=== PATIENT | male | born 1970 | race African-American/Black ===

== ENCOUNTER 2016-06-28 22:11 | Inpatient (IN) | payer OTHER ==
[~2016-06-28] VITALS: Ht 177.8 cm; Wt 68.0 kg
[2016-06-28 23:19] LABS: BASOPHILS 0.2 % (0.0-2.0); EOSINOPHILS 0.6 % (0-7); HEMATOCRIT 40.5 % (42.0-54.0); HEMOGLOBIN 13.2 g/dL (13.5-17.5); IMMATURE GRANULOCYTES 0.2 % (0-5); LYMPHOCYTES 27.8 % (15-50); MCH 31.6 pg (26.0-34.0); MCHC 32.6 g/dL (31.0-37.0); MCV 96.9 fL (80.0-100.0); MEAN PLATELET VOLUME 9.3 fL (7.4-10.4); MONOCYTES 7.4 % (2-11); NEUTROPHILS 63.8 % (40-80); PLATELET COUNT 198 10x3/uL (130-400); RBC 4.18 10x6/uL (4.20-6.10); RDW 13.1 % (11.5-14.5); WBC 5.2 10x3/uL (4.8-10.8)
[2016-06-28 23:21] LABS: APPEARANCE HAZY (CLEAR); BACTERIA NONE SEEN /hpf (NONE SEEN); BILIRUBIN NEGATIVE (NEGATIVE); COLOR YELLOW (YELLOW); EPITHELIAL CELLS NSEEN /hpf (0-5); GLUCOSE 50 mg/dL (NEGATIVE); KETONE SMALL mg/dL (NEGATIVE); LEUKOCYTE ESTERASE NEGATIVE (NEGATIVE); NITRITE NEGATIVE (NEGATIVE); PROTEIN TRACE mg/dL (NEGATIVE); RED CELLS - URINE 0-5 /hpf (0-5); SPECIFIC GRAVITY 1.025 (1.005-1.020); UROBILINOGEN NORMAL (NORMAL); WHITE CELLS - URINE NSEEN /hpf (0-5)
[2016-06-28 23:28] LABS: UDS - AMPHET POSITIVE QUAL (NEGATIVE); UDS - BARB NEGATIVE QUAL (NEGATIVE); UDS - BENZO POSITIVE QUAL (NEGATIVE); UDS - COCAINE POSITIVE QUAL (NEGATIVE); UDS - METH NEGATIVE QUAL (NEGATIVE); UDS - OPIATE NEGATIVE QUAL (NEGATIVE); UDS - PCP NEGATIVE QUAL (NEGATIVE); UDS - THC POSITIVE QUAL (NEGATIVE)
[2016-06-28 23:28] LABS: ALBUMIN 2.8 g/dL (3.4-5.0); ANION GAP 13.7 mmol/L (8-16); BILIRUBIN - TOTAL 0.2 mg/dL (0.2-1.3); CALCIUM 7.5 mg/dL (8.5-10.1); CREATININE - SERUM 1.2 mg/dL (0.6-1.3); POTASSIUM - SERUM 3.7 mmol/L (3.5-5.1); PROTEIN - SERUM 5.8 g/dL (6.4-8.2)
[2016-06-29] VITALS (24 sets, daily range): BP systolic 102–156; BP diastolic 85–117; Ht 177.8 cm; Wt 68.0 kg
--- NOTE | 2016-06-29 01:00 | NUR ---
PATIENT BROUGHT FROM ER VIA BED. PATIENT IS INTUBATED AND ON THE VENT. ETT 25CM AT THE LIP. OGT PLACED AT THIS TIME AND HOOKED TO LIS AFTER CONFIRMING LOCATION WITH AIR BOLUS. 100CC OF BILE COLORED FLUID SUCTIONED INTO CANISTER. S1S2 NOTED WITH NORMAL SINUS ON MONITOR WITH A RATE OF 93. LUNG SOUNDS CLEAR, EVEN BILATERAL. BOWEL SOUNDS ACTIVE X4. MENESES CATHETER PLACED BEFORE TRANSFER AND HAS 300CC OF CLEAR YELLOW URINE. SCD'S PLACED ON PATIENT AT THIS TIME. PIV IN RIGHT AC INFUSING PROPOFOL @ 50MCG/KG/MIN AND NS @ 100MLS/HR. PERIPHERAL PULSES +2. PATIENT HAS BAG WITH CLOTHES IN IT THAT WILL BE KEPT IN THE UNIT DISCHARGE. PATIENT IS VERY AWAKE AND THRASHING IN BED AT THIS TIME, PROPOFOL INCREASED FOR SEDATION. VSS, SEE ADMISSION ASSESSMENT FOR MORE DETAILS.
--- NOTE | 2016-06-29 02:30 | NUR ---
PATIENT CONTINUES TO THRASH AROUND IN BED AND FIGHT THE VENT, SEDATION TITRATED UP FOR SEDATION. VSS.
--- NOTE | 2016-06-29 03:30 | NUR ---
PRN ATIVAN GIVEN FOR AGITATION. REASSESSMENT COMPLETE AT THIS TIME. NO CHAGES FROM INITIAL ASSESSMENT.
--- NOTE | 2016-06-29 05:00 | NUR ---
PATIENT CALM AND COOPERATIVE. VSS, WILL CONTINUE TO MONITOR.
[2016-06-29 05:05] LABS: BASOPHILS 0.2 % (0.0-2.0); EOSINOPHILS 0.5 % (0-7); HEMATOCRIT 41.4 % (42.0-54.0); HEMOGLOBIN 13.8 g/dL (13.5-17.5); LYMPHOCYTES 37.8 % (15-50); MCH 31.6 pg (26.0-34.0); MCHC 33.3 g/dL (31.0-37.0); MCV 94.7 fL (80.0-100.0); MEAN PLATELET VOLUME 9.3 fL (7.4-10.4); MONOCYTES 9.7 % (2-11); NEUTROPHILS 51.8 % (40-80); PLATELET COUNT 214 10x3/uL (130-400); RBC 4.37 10x6/uL (4.20-6.10); RDW 13.1 % (11.5-14.5); WBC 6.3 10x3/uL (4.8-10.8)
[2016-06-29 05:22] LABS: ALBUMIN 2.9 g/dL (3.4-5.0); ALKALINE PHOSPHATASE 64 U/L (46-116); ALT (SGPT) 24 U/L (10-68); BILIRUBIN - TOTAL 0.32 mg/dL (0.2-1.3); CALC OSMOLALITY 279 mosm/kg (275-300); CALCIUM 7.7 mg/dL (8.5-10.1); CARBON DIOXIDE 28.4 mmol/L (21.0-32.0); CHLORIDE - SERUM 105 mmol/L (98-107); GLUCOSE 106 mg/dL (74-106); POTASSIUM - SERUM 3.8 mmol/L (3.5-5.1); SODIUM 141 mmol/L (136-145); UREA NITROGEN 10 mg/dL (7-18); eGFR NON AFRICAN AMERICAN 87 mL/min (90-120)
--- NOTE | 2016-06-29 08:07 | NUR ---
LYING IN BED AT THIS TIME ON VENT AND SEDATED. NO ACUTE DISTRESS NOTED. PT TURNED Q2H. WILL CONTINUE PLAN FO CARE.
--- NOTE | 2016-06-29 10:33 | NUR ---
NOTED PT HAS HIGH BLOOD PRESSURE AT 149/106. DR CHANG ROUNDING AT THIS TIME, NOTIFIED. NOTED NEW ORDER FOR CLONIDINE PATCH 0.1MG. ORDER PLACED.
--- NOTE | 2016-06-29 12:13 | NUR ---
Nutrition Note: Chart reviewed and spoke with nursing. If pt is unable to wean from vent within the next 24-48 hours rec begin TF of Pulmocare @ 10 ml/hr. Advance 10 ml every 8-10 hours as tolerated to goal rate of 40 ml/hr (depending on Diprivan rate at that time). Water flushes 25 ml/hr. RD will continue to monitor pt progress.
--- NOTE | 2016-06-29 14:46 | NUR ---
NO ACUTE DISTRESS NOTED. PT TURNED, ORAL CARE PROVIDED. NO ACUTE DISTRESS NOTED. WILL CONTINUE PLAN OF CARE.
--- NOTE | 2016-06-29 15:59 | NUR ---
POISON CONTROL CALLED.
--- NOTE | 2016-06-29 16:16 | NUR ---
WHILE TURNING PT NOTED PT TO SLIGHTLY MOVE ARMS. PT ABLE TO SLIGHTLY SQUEEZE HAND WHEN ASKED BY STAFF. NO ACUATE DISTRESS NOTED. WILL CONTINUE PLAN FO CARE.
--- NOTE | 2016-06-29 19:15 | NUR ---
ASSESSMENT COMPLETE. PATIENT ON VENT AND SEDATED WITH PROPOFOL AT 50MCG/KG/MIN. OPENS EYES TO PAIN. OGT TO LIS. S1S2 NOTED WITH NORMAL SINUS ON MONITOR. BREATH SOUNDS EVEN, LUNG SOUNDS CLEAR. BOWEL SOUNDS ACTIVE, BELLY NON-DISTENDED. PERIPHERAL PULSES +2. VSS, WILL CONTINUE TO MONITOR.
--- NOTE | 2016-06-29 21:00 | NUR ---
PATIENT THRASHING AROUND IN BED AND FIGHTING/BITING DOWN ON TUBE. TITRATING UP ON PROPOFOL FAILED TO CALM PATIENT. PRN ATIVAN GIVEN FOR AGITATION. WILL CONTINUE TO MONITOR.
--- NOTE | 2016-06-29 23:15 | NUR ---
REASSESSMENT COMPLETE. NO ACUTE CHANGES AT THIS TIME.
[2016-06-30] VITALS (24 sets, daily range): BP systolic 97–163; BP diastolic 39–108
--- NOTE | 2016-06-30 01:00 | NUR ---
PATIENT CALM AND COOPERATIVE, VSS, ORAL CARE GIVEN.
--- NOTE | 2016-06-30 03:05 | NUR ---
REASSESSMENT COMPLETE. NO CHANGES AT THIS TIME.
--- NOTE | 2016-06-30 05:00 | NUR ---
ORAL CARE GIVEN, PATIENT HAS SOME BLOOD FROM BITING TONGUE. CLEANED UP AND REPOSITIONED FOR COMFORT.
[2016-06-30 05:29] LABS: BASOPHILS 0 % (0.0-2.0); EOSINOPHILS 0.2 % (0-7); HEMATOCRIT 45.6 % (42.0-54.0); IMMATURE GRANULOCYTES 0.1 % (0-5); LYMPHOCYTES 29.1 % (15-50); MCH 31.6 pg (26.0-34.0); MCHC 32.9 g/dL (31.0-37.0); MCV 96.2 fL (80.0-100.0); MONOCYTES 9.2 % (2-11); NEUTROPHILS 61.4 % (40-80); PLATELET COUNT 209 10x3/uL (130-400); RBC 4.74 10x6/uL (4.20-6.10); RDW 13.4 % (11.5-14.5)
[2016-06-30 05:30] LABS: WBC 8.3 10x3/uL (4.8-10.8)
[2016-06-30 06:00] LABS: ALBUMIN 3.2 g/dL (3.4-5.0); BILIRUBIN - TOTAL 0.3 mg/dL (0.2-1.3); CALCIUM 8.2 mg/dL (8.5-10.1); CARBON DIOXIDE 27.9 mmol/L (21.0-32.0); CREATININE - SERUM 1.2 mg/dL (0.6-1.3); MAGNESIUM - SERUM 2.1 mg/dL (1.8-2.4); POTASSIUM - SERUM 3.9 mmol/L (3.5-5.1); PROTEIN - SERUM 6.5 g/dL (6.4-8.2)
--- NOTE | 2016-06-30 07:31 | NUR ---
SUCTIONING PROVIDED TO PT, NOTED SMALL AMOUNT OF THICK SECRETIONS. NEURO CHECKS PROVIDED. PT NOTED TO FOLLOW SIMPLE COMMANDS SUCH SQUEEZING STAFF HAND UPON REQUEST. PT ALSO TURNING HEAD IN THE DIRECTION OF PERSON SPEAKING TO HIM. NO ACUTE DISTRESS NOTED. WILL CONTINUE PLAN OF CARE.
--- NOTE | 2016-06-30 10:51 | NUR ---
SEDATION IS OFF AT THIS TIME. PT IS FOLLOWING COMMANDS. RESPIRATORY HAS CHANGED SETTINGS TO SEE IF PT CAN BE WEANED. NO DISTRESS NOTED. WILL CONTINUE PLAN OF CARE.
--- NOTE | 2016-06-30 11:40 | NUR ---
BILATERAL SOFT WRIST RESTRAINTS ALSO DC AT THIS TIME.
--- NOTE | 2016-06-30 11:40 | NUR ---
PT EXTUBATED SELF AT THIS TIME. SOFT WRIST RESTRAINTS WERE IN PLACE AND HAD BEEN CHECKED FREQUENTLY TO SEE IF NEEDING ADJUSTMENT. PT HAD EXTUBATED SELF WHILE STILL ON SOFT WRIST RESTRAINTS. DR LEONARD IMMEDIATLY NOTIFIED. RESPRITORY CALLED TO ROOM. PT IMMEDIATLY BAGGED UNTIL OXYGEN SATURATION WAS ABOVE 90% MORA LEONARD IN ROOM, PT BEGAN BREATHING ON OWN AND OXYGEN SATURATION REMAINED OVER 90%. NC PLACED AT 2L OXYGEN. OXYGEN SATURATION NOTED AT 94%. SUCTIONING AND ORAL CARE PROVIDED. WILL CONTINUE PLAN OF CARE.
--- NOTE | 2016-06-30 12:30 | NUR ---
RESTING AT THIS TIME, RESPIRATIONS AT STEADY AND UNLABORED RATE. OXYGEN SATURATION AT 94% AT 2L VIA NC. WILL CONTINUE PLAN FO CARE.
--- NOTE | 2016-06-30 13:23 | NUR ---
SITTING UP IN BED AWAKE AT THIS TIME. NO ACUTE DISTRESS. SOME CONFUSION TO LOCATION AND SITUATION. REORIENTATION PROVIDED. PT DENIES ANY NEEDS. WILL CONTINUE PLAN OF CARE.
--- NOTE | 2016-06-30 13:30 | NUR ---
NOTED PT TOLERATING ICE CHIPS VERY WELL. NO COUGHING.WILL CONTINUE PLAN FO CARE.
--- NOTE | 2016-06-30 14:08 | NUR ---
NOTED PT TOELRATES SIPS OF WATER VERY WELL. NO COUGHING OR SYMPTOMS OF ASPIRATION NOTED. WILL CONTINUE PLAN OF CARE.
--- NOTE | 2016-06-30 16:48 | NUR ---
LYING IN BED RESTING AT THIS TIME. AWAKENS EASILY WHEN STAFF STATES PT NAME. NO ACUTE DISTRESS NOTED. WILL CONTINUE PLAN OF CARE.
--- NOTE | 2016-06-30 18:22 | NUR ---
SITTING UP IN BED RESTING AT THIS TIME. AWAKENS EASILY WHEN STAFF STATES PT NAME. NO ACUTE DISTRESS NOTED. PT TOLERATING CLEAR LIQUID DIET VERY WELL. NO COUGHING OR SIGNS OF ASPIRATION NOTED. WILL CONTINUE PLAN OF CARE.
--- NOTE | 2016-06-30 19:00 | NUR ---
REPORT RECIEVED, INITIAL ASSESSMENT COMPLETE, PLEASE SEE FLOW SHEETS FOR DETAILS. BED LOW AND LOCKED, CALL LIGHT IN REACH. FEBRILE AT THIS TIME. CALLED DR JOHNSON FOR TYLENOL ORDERS, WILL GIVE ORDERED. ALL OTHER VSS, WILL CONTINUE TO MONITOR.
--- NOTE | 2016-06-30 23:00 | NUR ---
REASSESSMENT COMPLETE, PLEASE SEE FLOW SHEETS FOR DETAILS. PT DENIES PAIN/NEEDS AT THIS TIME. BED LOW AND LOCKED, CALL LIGHT IN REACH. WILL CONTINUE TO MONITOR.
[2016-07-01] VITALS (12 sets, daily range): BP systolic 98–126; BP diastolic 49–89
--- NOTE | 2016-07-01 01:00 | NUR ---
PT RESTING. DENIES PAIN/NEEDS AT THIS TIME. BED LOW AND LOCKED, CALL LIGHT IN REACH. VSS, WILL CONTINUE TO MONITOR.
--- NOTE | 2016-07-01 03:00 | NUR ---
REASSESSMENT COMPLETE, PLEASE SEE FLOW SHEETS FOR DETAILS. BED LOW AND LOCKED, CALL LIGHT IN REACH. DENIES PAIN/NEEDS AT THIS TIME. VSS, WILL CONTINUE TO MONITOR.
[2016-07-01 04:48] LABS: BASOPHILS 0.1 % (0.0-2.0); EOSINOPHILS 0.9 % (0-7); HEMATOCRIT 37.8 % (42.0-54.0); HEMOGLOBIN 12.1 g/dL (13.5-17.5); IMMATURE GRANULOCYTES 0.1 % (0-5); LYMPHOCYTES 19.8 % (15-50); MCH 31.3 pg (26.0-34.0); MCV 97.7 fL (80.0-100.0); MEAN PLATELET VOLUME 9.5 fL (7.4-10.4); MONOCYTES 10.3 % (2-11); NEUTROPHILS 68.8 % (40-80); PLATELET COUNT 179 10x3/uL (130-400); RBC 3.87 10x6/uL (4.20-6.10); RDW 13.3 % (11.5-14.5); WBC 7.8 10x3/uL (4.8-10.8)
--- NOTE | 2016-07-01 05:00 | NUR ---
PT RESTING. DENIES PAIN/NEEDS AT THIS TIME. VSS, WILL CONTINUE TO MONITOR.
[2016-07-01 05:06] LABS: ALBUMIN 2.5 g/dL (3.4-5.0); ANION GAP 6.9 mmol/L (8-16); BILIRUBIN - TOTAL 0.43 mg/dL (0.2-1.3); CARBON DIOXIDE 32.4 mmol/L (21.0-32.0); CREATININE - SERUM 1.2 mg/dL (0.6-1.3); MAGNESIUM - SERUM 2.2 mg/dL (1.8-2.4); PROTEIN - SERUM 5.9 g/dL (6.4-8.2)
[2016-07-01 05:16] LABS: POTASSIUM - SERUM 3.3 mmol/L (3.5-5.1)
--- NOTE | 2016-07-01 08:09 | NUR ---
0800- PT ALERT AND ORIENTED. SPO2 97% ON 2LNC. BREAKFAST TRAY SERVED.
--- NOTE | 2016-07-01 10:47 | NUR ---
NUTRITION MONITORING & EVAL CHART REVIEWED. PT VISIT. UP IN CHAIR. REG BREAKFAST, ~50% INTAKE. WILL CONTINUE TO PROVIDE DIET, MONITOR PO INTAKE. RD FOLLOWING
--- NOTE | 2016-07-01 14:05 | NUR ---
1400-dr hinton here and spoke to pt at , called and reported TO DR SOTOMAYOR AND DR LIZ. OK TO DC ORDERS GIVEN FROM DR LIZ AND DR COBIAN AND DR BARROW.
--- NOTE | 2016-07-01 19:00 | NUR ---
REPORT RECIEVED, ASSESSMENT COMPLETE, PLEASE SEE FLOW SHEETS FOR DETAILS. PT PROVIDES SELF CARE. DENIES PAIN/ NEEDS AT THIS TIME. TRANSFER ORDERS IN, AWAITING NEW ROOM. BED LOW AND LOCKED, CALL LIGHT IN REACH. VSS AT THIS TIME, WILL CONTINUE TO MONITOR.
--- NOTE | 2016-07-01 21:00 | NUR ---
OFFERED PT SUPPLIES FOR SELF CARE (BATH, ORAL CARE, CHANGING) THIS WAS ACCEPTED WITH ENTHUSIASM. PROVIDED FOR PROVACY AND ASKED IF THERE WERE ANY OTHER NEEDS. THIS WAS DENIED. VSS AT THIS TIME, WILL CONTINUE TO MONITOR.
--- NOTE | 2016-07-01 21:01 | NUR ---
* Is the patient Alert and Oriented? Yes 0 * How many steps to enter\exit or inside your home? none 0 * PCP No PCP 0 * Pharmacy [facility] [address] 0 * Preadmission Environment Home with Family 0 * ADLs Independent 0 * Equipment None 0 * Other Equipment N/A 0 * List name and contact numbers for known caregivers / representatives who currently or will assist patient after discharge: Glenda [phone] 0 * Community resources currently utilized None 0 * Please name any agencies selected above. N/A 0 * Additional services required to return to the preadmission environment? No 0 * Can the patient safely return to the preadmission environment? Yes 0 * Has this patient been hospitalized within the prior 30 days at any hospital? No 0
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
--- NOTE | 2016-07-01 21:45 | NUR ---
FULL LINEN CHANGE PROVIDED.
--- NOTE | 2016-07-01 22:52 | NUR ---
PT RESTING, REQUESTED COFFEE, THIS WAS PROVIDED. NO S&S OF ACUTE DISTRESS NOTED. BED LOW AND LOCKED, CALL LIGHT IN REACH. DENIES PAIN AT THIS TIME. VSS, WILL CONTINUE TO MONITOR.
--- NOTE | 2016-07-02 01:11 | NUR ---
PT SLEEPING, NO S&S OF DISTRESS NOTED. VSS AT THIS TIME. BED LOW AND LOCKED, CALL LIGHT IN REACH. WILL CONTINUE TO MONITOR.
--- NOTE | 2016-07-02 02:50 | NUR ---
PT RESTING, DENIES PAIN/NEEDS AT THIS TIME. BED LOW AND LOCKED, CALL LIGHT IN REACH. VSS, WILL CONTINUE TO MONITOR.
[2016-07-02 03:00] VITALS: BP 94/51
--- NOTE | 2016-07-02 03:05 | NUR ---
TEMP 100.7, GAVE TYLENOL ORDERED.
[2016-07-02 03:57] LABS: BASOPHILS 0.2 % (0.0-2.0); EOSINOPHILS 2.4 % (0-7); HEMOGLOBIN 11.8 g/dL (13.5-17.5); IMMATURE GRANULOCYTES 0.2 % (0-5); LYMPHOCYTES 26.7 % (15-50); MCH 30.6 pg (26.0-34.0); MCHC 31.9 g/dL (31.0-37.0); MCV 96.1 fL (80.0-100.0); MEAN PLATELET VOLUME 9.6 fL (7.4-10.4); MONOCYTES 10.3 % (2-11); NEUTROPHILS 60.2 % (40-80); PLATELET COUNT 184 10x3/uL (130-400); RBC 3.85 10x6/uL (4.20-6.10); WBC 6.2 10x3/uL (4.8-10.8)
[2016-07-02 04:21] LABS: ALBUMIN 2.3 g/dL (3.4-5.0); ANION GAP 7.1 mmol/L (8-16); BILIRUBIN - TOTAL 0.3 mg/dL (0.2-1.3); CALCIUM 7.7 mg/dL (8.5-10.1); CARBON DIOXIDE 31.1 mmol/L (21.0-32.0); CREATININE - SERUM 1.2 mg/dL (0.6-1.3); PHOSPHOROUS 3.3 mg/dL (2.5-4.9); POTASSIUM - SERUM 3.2 mmol/L (3.5-5.1); PROTEIN - SERUM 5.7 g/dL (6.4-8.2)
--- NOTE | 2016-07-02 05:58 | NUR ---
PT RESTING, DENIES PAIN/NEEDS AT THIS TIME. VSS, WILL CONTINUE TO MONITOR.
--- NOTE | 2016-07-02 11:07 | NUR ---
1100-PT DC INST GIVEN. AWAITING BELONGINGS TO BE BROUGHT UP FROM [facility].
[2016-07-02 11:12] VITALS: BP 106/76
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
--- NOTE | 2016-07-12 12:39 | CN ---
PATIENT NAME:KYLAH RAM MEDICAL RECORD: [id number] : 74 LOCATION:[id number] ADMIT DATE: 06/28/16 ACCOUNT: [id number] CONSULTING PHYSICIAN: MOOSE JOHNSON MD REFERRING PHYSICIAN: LYNDSAY GONZALEZ MD DATE OF CONSULTATION: 06/29/2016 Pulmonary Consultation CONSULT REQUESTING PHYSICIAN: Lyndsay Gonzalez MD REASON FOR CONSULTATION: Vent management and drug overdose. HISTORY OF PRESENT ILLNESS: Mr. Ram is a 45-year-old gentleman, who was found unresponsive and brought into the ER and intubated. Drug screen was positive for multiple drugs. Now, he is sedated and the history was taken mainly by reviewing through the patient's note and talking to the nursing staff. REVIEW OF SYSTEMS: Not obtainable. PAST MEDICAL HISTORY: Not obtainable. PAST SURGICAL HISTORY: Not obtainable. ALLERGIES: No known drug allergies. PRESENT MEDICATIONS: On Runteq was reviewed. PERSONAL HISTORY AND SOCIAL HISTORY: Looks like the patient is abusing recreational drugs. He is also a drinker. FAMILY HISTORY: Noncontributory. PHYSICAL EXAMINATION: GENERAL: Now, the patient is orally intubated and sedated. VITAL SIGNS: The blood pressure is 135/97, pulse is 99, respirations 16, and temperature 97.5, SpO2 is 99%. He is on assist control mechanical ventilation. HEENT: Conjunctivae are pink, sclerae are not icteric. NECK: Supple and no JVD. CHEST: Excursion is minimal on both sides. There are no wheezes and no rales. HEART: Rhythm regular, normal sound. No murmur. ABDOMEN: Soft, bowel sounds present. No hepatosplenomegaly. RECTAL: Deferred. EXTREMITIES: No cyanosis, no clubbing, and no pedal edema. SKIN: Warm, normal turgor. CENTRAL NERVOUS SYSTEM: The patient is orally intubated and sedated. LABORATORY DATA: CBC: WBC 6.3, hemoglobin 13.8, hematocrit 41.4, the platelet count 214. Chemistry: Sodium is 141, potassium 3.8. BUN is 10, creatinine is 1, glucose 106. CHEST RADIOGRAPH: The ET tube is in good position. There is no infiltrate. IMPRESSION: 1. Acute respiratory failure secondary to multidrug overdose. CONSULT REPORT [id number] KYLAH RAM 3. Multidrug overdose. 4. Mental status changes secondary to multidrug overdose. 5. Alcoholism. The patient's urine drug was positive for amphetamine, benzodiazepine, cocaine, marijuana and alcohol was 8. RECOMMENDATION: 1. We will continue mechanical ventilation. We will try to wean the patient, when more awake and alert. 2. DVT and GI stress ulcer prevention. 3. Start on banana bag. Follow up labs and chest radiograph in the morning. Dr. Gonzalez, once again thanks for involving me in the care of Ms. Ram. TRANSINT:[id number] Voice Confirmation ID: [id number] DOCUMENT ID: [id number] MOOSE JOHNSON MD at 1239 CC: LYNDSAY GONZALEZ MD [id number] DICTATION DATE: 06/29/16 1233 DRUM SANDER: 06/29/16 1257 DIS IN 07/02/16 [place] [id number] [place] [address]
== END 2016-07-02 11:48 | disposition home or self-care (01) | DRG 917 ==
LOC: D.ER 22:11 → D.ICU 23:57
PROVIDERS: Emergency Medicine; Internal Medicine Pulmonary Disease; ADMIT Family Medicine
PROC: 0BH17EZ Insertion of Endotracheal Airway into Trachea, Via Natural or Artificial Opening (ICD-10-PCS; principal; 2016-06-28)
PROC: 5A1945Z Respiratory Ventilation, 24-96 Consecutive Hours (ICD-10-PCS; 2016-06-28)
PROC: 0T9B70Z Drainage of Bladder with Drainage Device, Via Natural or Artificial Opening (ICD-10-PCS; 2016-06-28)
DX: T40.5X4A Poisoning by cocaine, undetermined, initial encounter (principal); J96.01 Acute respiratory failure with hypoxia; T40.7X4A Poisoning by cannabis (derivatives), undetermined, initial encounter; T42.4X4A Poisoning by benzodiazepines, undetermined, initial encounter; T51.0X4A Toxic effect of ethanol, undetermined, initial encounter; D64.9 Anemia, unspecified; F43.29 Adjustment disorder with other symptoms